=== PATIENT | female | born 1995 | race Two or more races ===

== ENCOUNTER 2021-02-04 07:37 | Inpatient (IN) | payer BC, MEDICAID ==
[~2021-02-04] VITALS: Ht 160 cm; Wt 88.5 kg
[2021-02-04] MEDS ORDERED: ONDANSETRON HCL 4 MG/2 ML VIAL IV ONE (07:45)
[2021-02-04] MEDS ORDERED: SODIUM CHLORIDE 0.9% 1,000 ML IV ONE (07:45)
[2021-02-04] MEDS ORDERED: MORPHINE SULFATE 4 MG/ML SYR/VIAL IV ONE (07:45)
[2021-02-04 08:10] LABS: Urine Bacteria FEW /hpf (None Seen); Urine Blood 1+ /uL (Negative); Urine Mucus FEW (None Seen); Urine Specific Gravity 1.022 (1.001-1.035); Urine WBC 29 /hpf (0 - 5)
[2021-02-04 09:23] LABS: Basophils # (auto) 0.1 10 ^3/uL (0-0.2); Basophils % (auto) 1.3 % (0.0-2.0); Eosinophils # (auto) 0.3 10 ^3/uL (0-0.8); Eosinophils % (auto) 2.5 % (0.0-7.0); Hematocrit 35.2 % (36.0-46.0); Hemoglobin 11.6 g/dL (12.2-16.2); Lymphocytes # (auto) 1.2 10 ^3/uL (0.4-5.4); Lymphocytes % (auto) 10.6 % (10.0-50.0); Mean Corpuscular Hemoglobin 27.1 pg (28.0-32.0); Mean Corpuscular Hgb Conc. 32.9 g/dL (32.0-36.0); Mean Corpuscular Volume 82.2 fL (80.0-100.0); Monocytes # (auto) 1.2 10 ^3/uL (0-1.3); Monocytes % (auto) 10.3 % (0.0-12.0); Neutrophils # (auto) 8.5 10 ^3/uL (1.6-8.6); Neutrophils % (auto) 75.3 % (37.0-80.0); Nucleated Red Blood Cells % 0.1 %; Red Blood Cells 4.28 10^6/uL (4.0-5.20); Red Cell Distribution Width 14.3 % (11.8-14.3); White Blood Cell 11.3 10^3/uL (4.4-10.8)
[2021-02-04] MEDS ORDERED: cefTRIAXone 1GM/50ML D5W 50 ML IV ONE (09:30)
[2021-02-04 09:33] LABS: INR 1.09 (0.9-1.15); Partial Thromboplastin Time 34.9 sec (23.6-33.0)
[2021-02-04 09:35] LABS: Albumin 3.4 g/dL (3.4-5.0); Calcium 8.7 mg/dL (8.5-10.1); Potassium 3.5 mmol/L (3.5-5.1)
[2021-02-04 09:39] LABS: BUN/Creatinine Ratio 9.2; Bilirubin, Total 0.7 mg/dL (0.2-1.0); Total Protein 7.3 g/dL (6.4-8.2)
[2021-02-04] MEDS ORDERED: metroNIDAZOLE 500MG/100ML 100 ML IV ONE (10:15)
[2021-02-04] MEDS ORDERED: MORPHINE SULFATE INJECTION 2 MG/ML SYRG IV PRN (13:15)
[2021-02-04] MEDS ORDERED: NITROGLYCERIN 0.4 MG SL TAB SL PRN (13:15)
[2021-02-04] MEDS ORDERED: DOCUSATE CALCIUM 240 MG CAP PO PRN (13:15)
[2021-02-04] MEDS ORDERED: LABETALOL HCL 5 MG/ML 4ML SYRINGE IV PRN (13:15)
[2021-02-04] MEDS ORDERED: SOD CHL 0.9%/ KCL 20MEQ 1,000 ML IV ONE (13:15)
[2021-02-04] MEDS: ENOXAPARIN SOD 40 MG/0.4 ML SYRINGE SC SCH (14:27)
[2021-02-04 17:10] VITALS: BP 108/88
[2021-02-04] MEDS: metroNIDAZOLE 500MG/100ML 100 ML IV SCH (21:47)
[2021-02-04 22:00] VITALS: BP 99/69
[2021-02-04] MEDS: LORazepam 0.5 MG TAB PO PRN (22:32)
[2021-02-05 05:00] VITALS: BP 106/68
[2021-02-05 06:02] LABS: Basophils # (auto) 0.1 10 ^3/uL (0-0.2); Basophils % (auto) 0.7 % (0.0-2.0); Eosinophils # (auto) 0.3 10 ^3/uL (0-0.8); Eosinophils % (auto) 3.8 % (0.0-7.0); Hematocrit 32.1 % (36.0-46.0); Hemoglobin 10.5 g/dL (12.2-16.2); Lymphocytes # (auto) 1.2 10 ^3/uL (0.4-5.4); Lymphocytes % (auto) 13.8 % (10.0-50.0); Mean Corpuscular Hemoglobin 27.1 pg (28.0-32.0); Mean Corpuscular Hgb Conc. 32.8 g/dL (32.0-36.0); Mean Corpuscular Volume 82.5 fL (80.0-100.0); Monocytes % (auto) 11.8 % (0.0-12.0); Neutrophils # (auto) 6.1 10 ^3/uL (1.6-8.6); Neutrophils % (auto) 69.9 % (37.0-80.0); Nucleated Red Blood Cells % 0.1 %; Red Blood Cells 3.89 10^6/uL (4.0-5.20); Red Cell Distribution Width 14.6 % (11.8-14.3); White Blood Cell 8.7 10^3/uL (4.4-10.8)
[2021-02-05 06:20] LABS: Albumin 2.9 g/dL (3.4-5.0); BUN/Creatinine Ratio 10.3; Calcium 8.1 mg/dL (8.5-10.1); Potassium 3.7 mmol/L (3.5-5.1)
[2021-02-05 06:22] LABS: Bilirubin, Total 0.9 mg/dL (0.2-1.0)
[2021-02-05] MEDS: metroNIDAZOLE 500MG/100ML 100 ML IV SCH ×3 (06:41→22:12)
[2021-02-05] MEDS: cefTRIAXone 1GM/50ML D5W 50 ML IV SCH (08:56)
[2021-02-05 09:00] VITALS: BP 104/61
[2021-02-05] MEDS: PANTOPRAZOLE 40 MG TAB PO SCH (10:00)
[2021-02-05] MEDS: ENOXAPARIN SOD 40 MG/0.4 ML SYRINGE SC SCH (10:00)
[2021-02-05 12:34] VITALS: BP 109/67
[2021-02-05 16:33] VITALS: BP 108/71
[2021-02-05] MEDS: LORazepam 0.5 MG TAB PO PRN (22:13)
[2021-02-05 22:28] VITALS: BP 103/65
[2021-02-06 05:30] VITALS: BP 105/64
[2021-02-06 05:49] LABS: Basophils # (auto) 0.1 10 ^3/uL (0-0.2); Basophils % (auto) 0.8 % (0.0-2.0); Eosinophils # (auto) 0.3 10 ^3/uL (0-0.8); Eosinophils % (auto) 3.4 % (0.0-7.0); Hematocrit 32.3 % (36.0-46.0); Hemoglobin 10.9 g/dL (12.2-16.2); Lymphocytes # (auto) 1.2 10 ^3/uL (0.4-5.4); Lymphocytes % (auto) 14.7 % (10.0-50.0); Mean Corpuscular Hemoglobin 27.7 pg (28.0-32.0); Mean Corpuscular Hgb Conc. 33.7 g/dL (32.0-36.0); Mean Corpuscular Volume 82.3 fL (80.0-100.0); Monocytes # (auto) 0.8 10 ^3/uL (0-1.3); Neutrophils # (auto) 5.8 10 ^3/uL (1.6-8.6); Neutrophils % (auto) 71.1 % (37.0-80.0); Nucleated Red Blood Cells % 0.1 %; Red Blood Cells 3.92 10^6/uL (4.0-5.20); Red Cell Distribution Width 13.8 % (11.8-14.3); White Blood Cell 8.1 10^3/uL (4.4-10.8)
[2021-02-06] MEDS: metroNIDAZOLE 500MG/100ML 100 ML IV SCH ×3 (05:50→22:29)
[2021-02-06 06:00] LABS: BUN/Creatinine Ratio 11.8; Calcium 8.2 mg/dL (8.5-10.1); Potassium 3.9 mmol/L (3.5-5.1)
[2021-02-06 09:00] VITALS: BP 108/66
[2021-02-06] MEDS: cefTRIAXone 1GM/50ML D5W 50 ML IV SCH (09:17)
[2021-02-06] MEDS: ENOXAPARIN SOD 40 MG/0.4 ML SYRINGE SC SCH (10:00)
[2021-02-06] MEDS: PANTOPRAZOLE 40 MG TAB PO SCH (10:00)
[2021-02-06] MEDS ORDERED: LIDOCAINE W/ EPINEPHRINE 1% 20ML VIAL ONE (10:19)
[2021-02-06] MEDS ORDERED: BUPIVACAINE 0.25% INJ 50ML VIAL ONE (10:19)
[2021-02-06] MEDS ORDERED: SUCCINYLCHOLINE CHLORIDE 20 MG/ML 10ML VIAL IV ONE (10:32)
[2021-02-06] MEDS ORDERED: MIDAZOLAM HCL 2MG/2ML 2ml VIAL (1mg/ml) ONE (10:33)
[2021-02-06] MEDS ORDERED: fentaNYL CITRATE 100 MCG/2 ML VL ONE ×2 (10:33→11:50)
[2021-02-06] MEDS ORDERED: PROPOFOL 10 MG/ML 20 ML IV ONE (10:36)
[2021-02-06] MEDS ORDERED: ROCURONIUM 10MG/ML 10ML VIAL IV ONE (10:37)
[2021-02-06] MEDS ORDERED: ceFAZolin 1GM/50ML 50 ML IV ONE (10:40)
[2021-02-06] MEDS ORDERED: DexAMETHasone SOD PHOS 10MG/1ML VIAL INJ ONE (10:58)
[2021-02-06] MEDS ORDERED: LIDOCAINE 1% HCL (LOCAL ANESTH.) INJ 20ML MDV ONE (11:02)
[2021-02-06] MEDS ORDERED: ONDANSETRON HCL 4 MG/2 ML VIAL ONE (12:06)
[2021-02-06] MEDS ORDERED: NEOSTIGMINE 1 MG/ML INJ (10mg/10ML VIAL) ONE (12:08)
[2021-02-06] MEDS ORDERED: GLYCOPYRROLATE 0.2 MG/ML 1ML VIAL ONE (12:09)
[2021-02-06] MEDS ORDERED: HYDROmorphone HCL 2 MG/ML VL IV PRN ×2 (12:30)
[2021-02-06] MEDS ORDERED: METOCLOPRAMIDE HCL 5MG/ml INJ 2ml VIAL IV PRN (12:30)
[2021-02-06] MEDS: MORPHINE SULFATE INJECTION 2 MG/ML SYRG IV PRN ×2 (14:20→18:51)
[2021-02-06] MEDS: ONDANSETRON HCL 4 MG/2 ML VIAL IV PRN (15:54)
[2021-02-06 16:35] VITALS: BP 102/64
[2021-02-06 21:45] VITALS: BP 113/69
[2021-02-06] MEDS: ACETAMINOPHEN 500 MG TAB PO PRN (23:46)
[2021-02-07] MEDS: LORazepam 0.5 MG TAB PO PRN ×2 (00:56→21:43)
[2021-02-07] MEDS: metroNIDAZOLE 500MG/100ML 100 ML IV SCH ×3 (05:28→21:43)
[2021-02-07 05:32] VITALS: BP 95/60
[2021-02-07 07:05] LABS: Basophils # (auto) 0 10 ^3/uL (0-0.2); Basophils % (auto) 0.3 % (0.0-2.0); Eosinophils # (auto) 0 10 ^3/uL (0-0.8); Eosinophils % (auto) 0.1 % (0.0-7.0); Hematocrit 32.1 % (36.0-46.0); Hemoglobin 10.6 g/dL (12.2-16.2); Lymphocytes # (auto) 1.2 10 ^3/uL (0.4-5.4); Lymphocytes % (auto) 11.7 % (10.0-50.0); Mean Corpuscular Volume 81.8 fL (80.0-100.0); Neutrophils # (auto) 7.8 10 ^3/uL (1.6-8.6); Neutrophils % (auto) 77.9 % (37.0-80.0); Red Blood Cells 3.92 10^6/uL (4.0-5.20); Red Cell Distribution Width 13.9 % (11.8-14.3); White Blood Cell 10.1 10^3/uL (4.4-10.8)
[2021-02-07 07:23] LABS: Potassium 4.5 mmol/L (3.5-5.1)
[2021-02-07 07:30] LABS: Calcium 8.4 mg/dL (8.5-10.1)
[2021-02-07 09:00] VITALS: BP 104/66
[2021-02-07] MEDS: cefTRIAXone 1GM/50ML D5W 50 ML IV SCH (09:07)
[2021-02-07] MEDS: PANTOPRAZOLE 40 MG TAB PO SCH (09:07)
[2021-02-07] MEDS: ENOXAPARIN SOD 40 MG/0.4 ML SYRINGE SC SCH (09:08)
[2021-02-07 13:00] VITALS: BP 102/55
[2021-02-07] MEDS ORDERED: METR500T PO (13:01)
[2021-02-07] MEDS ORDERED: AMOX500T86 PO (13:01)
[2021-02-07 13:36] LABS: Albumin 2.9 g/dL (3.4-5.0)
[2021-02-07 13:39] LABS: Bilirubin, Total 0.4 mg/dL (0.2-1.0); Total Protein 6.3 g/dL (6.4-8.2)
[2021-02-07 17:00] VITALS: BP 104/68
[2021-02-07 22:00] VITALS: BP 103/59
[2021-02-08] MEDS: ONDANSETRON HCL 4 MG/2 ML VIAL IV PRN (04:15)
[2021-02-08] MEDS: ACETAMINOPHEN 500 MG TAB PO PRN (04:16)
[2021-02-08 05:00] VITALS: BP 113/70
[2021-02-08] MEDS: metroNIDAZOLE 500MG/100ML 100 ML IV SCH ×2 (05:38→13:42)
[2021-02-08 06:28] LABS: Potassium 3.9 mmol/L (3.5-5.1)
[2021-02-08 06:41] LABS: BUN/Creatinine Ratio 17.7; Bilirubin, Total 0.3 mg/dL (0.2-1.0); Calcium 8.2 mg/dL (8.5-10.1); Total Protein 6.2 g/dL (6.4-8.2)
[2021-02-08 09:00] VITALS: BP_SYST 94; BP_SYST 99; BP_DIAS 55; BP_DIAS 65
[2021-02-08] MEDS: cefTRIAXone 1GM/50ML D5W 50 ML IV SCH (09:03)
[2021-02-08] MEDS: ENOXAPARIN SOD 40 MG/0.4 ML SYRINGE SC SCH (09:03)
[2021-02-08] MEDS: PANTOPRAZOLE 40 MG TAB PO SCH (09:03)
[2021-02-08 12:58] VITALS: BP 119/81
[2021-02-08 13:10] VITALS: BP 119/81
[2021-02-08 16:58] VITALS: BP_SYST 113; BP_SYST 173; BP_DIAS 73
== END 2021-02-08 18:00 | disposition home or self-care (01) | DRG 418 ==
LOC: ER 07:37 → OVERFLOW 13:10 → WEST WING 16:59 → TELE-WESTW 23:30 → WEST WING 02-05 07:23
PROVIDERS: ADMIT Family Medicine; ATTEND Internal Medicine Pulmonary Disease
PROC: 0DNU4ZZ Release Omentum, Percutaneous Endoscopic Approach (ICD-10-PCS; 2021-02-06)
PROC: 0FT44ZZ Resection of Gallbladder, Percutaneous Endoscopic Approach (ICD-10-PCS; principal; 2021-02-06 10:45)
DX: K81.0 Acute cholecystitis (principal); N39.0 Urinary tract infection, site not specified; E86.0 Dehydration; Z20.822 Contact with and (suspected) exposure to COVID-19; D64.9 Anemia, unspecified
CPT/HCPCS: 36415; 76705; 80048; 80053; 81001; 81025; 83605; 83690; 84443; 85025; 85610; 85730; 86850; 86900; 86901; 87040; 87086; 87426; 96361; 96365; 96375; G0378; J0330; J0690; J0696; J1100; J2001; J2250; J2405; J2704; J3490